=== PATIENT | female | born 1945 | race Caucasian/White ===

== ENCOUNTER 2021-06-17 09:39 | Outpatient (CLI) | payer MEDICARE, SELFPAY ==
--- NOTE | 2021-06-17 10:00 | MM_ITS ---
WS: [id number] Bilateral screening digital mammogram, 06/17/2021 Clinical Data: Z12.39 - Encounter for other screening for malignant neop... Comparison: 07/28/2019, 06/12/2019, 11/23/2017, 11/21/2016, 11/05/2015, 09/29/2014, 02/15/2013, 02/11/2013, , 06/20/2010, 02/11/2009, 12/27/2006. Findings: The breast parenchymal pattern shows fibroglandular tissue. No spiculated masses or clustered calcifi cations are seen. There are no secondary signs of carcinoma. MM/[id number] Impression: 1. Negative bilateral mammogram unchanged. 2. Recommend annual screening mammograms. BIRADS: 1-Negative FOLLOW UP: 1 Year Follow-up The CAD dead mail checker was used.
== END 2021-06-17 09:40 | disposition home or self-care (01) ==
LOC: RADSHAW 09:42
PROVIDERS: PCP Family Medicine; Visit Provider Nurse Practitioner Women's Health
DX: Z12.31 Encounter for screening mammogram for malignant neoplasm of breast (principal)
CPT/HCPCS: 77067